=== PATIENT | female | born 1945 | race Caucasian/White ===

== ENCOUNTER 2016-10-13 20:16 | Inpatient (IN) | payer MEDICARE, OTHER ==
[~2016-10-13] VITALS: Ht 162.5 cm; Wt 92.1 kg
[2016-10-13 20:27] VITALS: BP 155/68
[2016-10-13] MEDS ORDERED: PREMARIN V0.625 MG/G V (20:46)
[2016-10-13] MEDS ORDERED: SINGULAIR10 M1 PO (20:46)
[2016-10-13] MEDS ORDERED: XANAX0.25 MG PO (20:47)
[2016-10-13] MEDS ORDERED: BENZONATATE200 MG PO (20:48)
[2016-10-13] MEDS ORDERED: SYNTHROID0.15 MG PO (20:49)
[2016-10-13] MEDS ORDERED: VESICARE10 MG PO (20:50)
[2016-10-13] MEDS ORDERED: COREG3.125 MG PO (20:50)
[2016-10-13] MEDS ORDERED: CLIMARA1 EACH TD (20:51)
[2016-10-13] MEDS ORDERED: CALCIUM 500 +1 EAC3 PO (20:52)
[2016-10-13] MEDS ORDERED: METHOCARBAMOL750 M1 PO (20:52)
[2016-10-13] MEDS ORDERED: CYMBALTA20 M1 PO (20:53)
[2016-10-13] MEDS ORDERED: HYDR12.5C PO (20:54)
[2016-10-13] MEDS ORDERED: COZAAR100 MG PO (20:54)
[2016-10-13] MEDS ORDERED: BIOTIN1 M1 PO (20:54)
[2016-10-13 20:55] LABS: HEMATOCRIT 42.1 % (37.0-47.0); HEMOGLOBIN 13.9 g/dl (12.0-16.0); MEAN CELL VOLUME 85.7 fl (81.0-99.0); MEAN CORPUSCULAR HGB 28.3 pg (27.0-31.0); MEAN PLATELET VOLUME 9.8 fl (9.6-12.3); PLATELET COUNT AUTOMATED 220 10*3/uL (130-400); RED BLOOD COUNT 4.91 10*6/uL (4.10-5.10); RED CELL DISTRI WIDTH 14.4 % (0-14.5); WHITE BLOOD COUNT 8.3 10*3/uL (4.8-10.8)
[2016-10-13] MEDS ORDERED: FISH OIL 1,001000 MG PO (20:55)
[2016-10-13] MEDS ORDERED: NYSTATIN CREAM15 GM T (20:55)
[2016-10-13] MEDS ORDERED: VITAMIN D31000 I1 PO (20:56)
[2016-10-13] MEDS ORDERED: FLONASE ALLERG9.9 ML NAS (20:56)
[2016-10-13] MEDS ORDERED: SOLARAZE3% T (20:57)
[2016-10-13] MEDS ORDERED: PRILOSEC20 M1 PO (20:57)
[2016-10-13 21:13] LABS: ALBUMIN 3.1 gm/dl (3.1-4.5); ALKALINE PHOSPHATASE 93 U/L (45-117); BILIRUBIN, TOTAL 0.6 mg/dl (0.2-1.0); BUN 12 mg/dl (7-24); C-REACTIVE PROTEIN 4.42 MG/DL (0-0.3); CARBON DIOXIDE 26 mmol/L (21-32); CHLORIDE 107 mmol/L (98-107); EST GLOM FILT AFRICAN AMERICAN > 60 ml/min; GLUCOSE 144 mg/dL (65-99); MAGNESIUM 1.6 mg/dL (1.5-2.1); POTASSIUM 3.7 mmol/L (3.5-5.1); SGOT/AST 15 IU/L (3-35); SGPT/ALT 25 U/L (12-78); SODIUM 143 mmol/L (136-145); TOTAL PROTEIN 6.5 gm/dL (6.4-8.2); TROPONIN I < 0.015 ng/ml (<0.5)
[2016-10-13 21:30] VITALS: BP 163/66
[2016-10-13 21:46] LABS: LYMPHOCYTE # 0.4 10*3/uL (1.3-4.4); MONOCYTE # 0.2 10*3/uL (0.1-1.0); NEUTROPHIL # 7.6 10*3/uL (2.3-7.9); NEUTROPHILS 92 % (47-73); PLATELET SUFFICIENCY NORMAL (NORMAL); TOTAL CELLS COUNTED 100 #CELLS
[2016-10-13 22:20] VITALS: BP 159/72
[2016-10-13 22:53] LABS: LA>2 REFLEX 2 HR DRAW NOW
[2016-10-13 23:08] VITALS: BP 156/75
[2016-10-13 23:18] LABS: LA>2 RFLX FOLLOW UP AT 2 HRS 2.2 mmol/L (0.4-2.0)
[2016-10-13 23:20] VITALS: BP 127/41
[2016-10-14] VITALS: BP 127/41
[2016-10-14 00:43] LABS: CKMB 1.6 ng/ml (0.5-3.6); CPK 87 U/L (26-192)
[2016-10-14 00:45] LABS: TROPONIN I < 0.015 ng/ml (<0.5)
[2016-10-14 01:11] LABS: LA>2 REFLEX 4 HR DRAW NOW
[2016-10-14 06:06] LABS: BASO % 0.1 % (0.0-1.0); LYMPH # 0.6 10*3/uL (1.3-4.4); LYMPH % 8.7 % (27.0-41.0); MEAN CORPUSCULAR HGB 28.3 pg (27.0-31.0); MEAN PLATELET VOLUME 9.7 fl (9.6-12.3); MONO # 0.3 10*3/uL (0.1-1.0); MONO % 4.4 % (3.0-9.0); NEUT # 5.9 10*3/uL (2.3-7.9); NEUT % 86.2 % (47.0-73.0); PLATELET COUNT AUTOMATED 181 10*3/uL (130-400); RED CELL DISTRI WIDTH 14.6 % (0-14.5); WHITE BLOOD COUNT 6.8 10*3/uL (4.8-10.8)
[2016-10-14 06:11] LABS: HEMATOCRIT 36.1 % (37.0-47.0); HEMOGLOBIN 11.9 g/dl (12.0-16.0)
[2016-10-14 06:20] LABS: CKMB 1.8 ng/ml (0.5-3.6); CPK 96 U/L (26-192)
[2016-10-14 06:25] LABS: TROPONIN I < 0.015 ng/ml (<0.5)
[2016-10-14 06:43] LABS: ALBUMIN 2.7 gm/dl (3.1-4.5); ALKALINE PHOSPHATASE 72 U/L (45-117); BILIRUBIN, TOTAL 0.7 mg/dl (0.2-1.0); BUN 9 mg/dl (7-24); CARBON DIOXIDE 27 mmol/L (21-32); CHLORIDE 107 mmol/L (98-107); CHOLESTEROL 175 mg/dL (<200); EST GLOM FILT AFRICAN AMERICAN > 60 ml/min; FREE T4 1.24 ng/dl (0.76-1.46); GLUCOSE 104 mg/dL (65-99); HDL CHOLESTEROL 62 mg/dl (40-60); LDL CHOLESTEROL 89 mg/dL (9-159); MAGNESIUM 1.6 mg/dL (1.5-2.1); POTASSIUM 3.3 mmol/L (3.5-5.1); SGOT/AST 16 IU/L (3-35); SGPT/ALT 22 U/L (12-78); SODIUM 143 mmol/L (136-145); TOTAL PROTEIN 5.2 gm/dL (6.4-8.2); TRIGLYCERIDES 119 mg/dl (<150); VLDL CHOLESTEROL 24 mg/dL (6-40)
[2016-10-14 07:01] LABS: HEMOGLOBIN A1c 6.2 % (4.8-5.6)
[2016-10-14 08:00] VITALS: BP 158/60
[2016-10-14 08:20] LABS: FOLIC ACID 8.91 ng/mL (>5.38); VITAMIN D, 25-HYDROXY 27.1 ng/mL (30-100)
[2016-10-14 12:00] VITALS: BP 138/60
[2016-10-14 12:08] LABS: CKMB 1.3 ng/ml (0.5-3.6); CPK 110 U/L (26-192)
[2016-10-14 12:09] LABS: TROPONIN I < 0.015 ng/ml (<0.5)
[2016-10-14 16:00] VITALS: BP 172/68
[2016-10-14 16:30] VITALS: BP 154/78
[2016-10-14 20:00] VITALS: BP 152/59
[2016-10-14 22:42] LABS: BILIRUBIN NEGATIVE (NEGATIVE); BLOOD NEGATIVE (NEGATIVE); CLARITY CLEAR (CLEAR); COLOR YELLOW (YELLOW); GLUCOSE NEGATIVE (NEGATIVE); KETONE NEGATIVE (NEGATIVE); LEUKO ESTERASE NEGATIVE (NEGATIVE); NITRITE NEGATIVE (NEGATIVE); PROTEIN NEGATIVE (NEGATIVE); SPECIFIC GRAVITY <= 1.005 (1.005-1.030); UROBILINOGEN 0.2 E.U./dl (0.2-1.0)
[2016-10-14 22:51] LABS: BACTERIA 1+; RBC 0-2 rbc/hpf (0-2); URINE REFLEX COMMENT NO (NO)
[2016-10-15] VITALS: BP 162/62
[2016-10-15 04:00] VITALS: BP 158/69
[2016-10-15 06:44] LABS: BASO % 0.1 % (0.0-1.0); EOS % 0.2 % (1.0-4.0); HEMATOCRIT 36.2 % (37.0-47.0); HEMOGLOBIN 11.7 g/dl (12.0-16.0); LYMPH # 1.3 10*3/uL (1.3-4.4); LYMPH % 15.2 % (27.0-41.0); MEAN CORPUSCULAR HGB 27.5 pg (27.0-31.0); MEAN CORPUSCULAR HGB CONC 32.3 g/dl (33.0-37.0); MEAN PLATELET VOLUME 10.3 fl (9.6-12.3); MONO # 0.7 10*3/uL (0.1-1.0); MONO % 8.8 % (3.0-9.0); NEUT # 6.2 10*3/uL (2.3-7.9); NEUT % 75.2 % (47.0-73.0); PLATELET COUNT AUTOMATED 188 10*3/uL (130-400); RED BLOOD COUNT 4.26 10*6/uL (4.10-5.10); RED CELL DISTRI WIDTH 14.7 % (0-14.5); WHITE BLOOD COUNT 8.3 10*3/uL (4.8-10.8)
[2016-10-15 07:26] LABS: ALBUMIN 2.7 gm/dl (3.1-4.5); ALKALINE PHOSPHATASE 76 U/L (45-117); BILIRUBIN, TOTAL 0.5 mg/dl (0.2-1.0); BUN 5 mg/dl (7-24); CARBON DIOXIDE 29 mmol/L (21-32); CHLORIDE 106 mmol/L (98-107); EST GLOM FILT AFRICAN AMERICAN > 60 ml/min; GLUCOSE 109 mg/dL (65-99); MAGNESIUM 1.8 mg/dL (1.5-2.1); PHOSPHOROUS 2.2 mg/dL (2.5-4.9); SGOT/AST 22 IU/L (3-35); SGPT/ALT 23 U/L (12-78); SODIUM 144 mmol/L (136-145); TOTAL PROTEIN 5.8 gm/dL (6.4-8.2)
[2016-10-15 08:00] VITALS: BP 184/78
[2016-10-15 12:00] VITALS: BP 138/62
[2016-10-15 16:00] VITALS: BP 134/50
[2016-10-15] MEDS ORDERED: B12,B-12,B 12500 MC1 PO (17:01)
== END 2016-10-15 19:05 | disposition home or self-care (01) | DRG 871 ==
LOC: ED 20:16 → 4E 22:32 → EDHOLD 22:32 → 4E 22:41
PROVIDERS: Emergency Medicine Emergency Medical Services; Internal Medicine
DX: A41.9 Sepsis, unspecified organism (principal); E43 Unspecified severe protein-calorie malnutrition; K52.9 Noninfective gastroenteritis and colitis, unspecified; R65.20 Severe sepsis without septic shock; F41.9 Anxiety disorder, unspecified; K21.9 Gastro-esophageal reflux disease without esophagitis; E78.5 Hyperlipidemia, unspecified; I10 Essential (primary) hypertension; E83.51 Hypocalcemia; D64.9 Anemia, unspecified; E87.6 Hypokalemia; N32.81 Overactive bladder; E53.8 Deficiency of other specified B group vitamins; E55.9 Vitamin D deficiency, unspecified; E86.0 Dehydration; E78.00 Pure hypercholesterolemia, unspecified; E89.0 Postprocedural hypothyroidism; E66.9 Obesity, unspecified; Z68.34 Body mass index [BMI] 34.0-34.9, adult; Z79.51 Long term (current) use of inhaled steroids; Z79.899 Other long term (current) drug therapy; Z90.49 Acquired absence of other specified parts of digestive tract; Z90.710 Acquired absence of both cervix and uterus; Z98.890 Other specified postprocedural states; Z88.8 Allergy status to other drugs, medicaments and biological substances; Z80.1 Family history of malignant neoplasm of trachea, bronchus and lung